=== PATIENT | female | born 1965 | race American Indian/Alaskan Native ===

== ENCOUNTER 2022-03-06 23:13 | Emergency (ER) | payer MEDICARE ==
--- NOTE | 2022-03-07 06:39 | Emergency Department Report ---
ED General Adult HPI - General Chief complaint: Wound/Laceration Stated complaint: WOUNDS ON BOTH LEGS Time Seen by Provider: 03/07/22 06:14 Source: patient, RN notes reviewed Mode of arrival: Ambulatory Limitations: No Limitations - History of Present Illness Initial comments: The patient was evaluated in the emergency department for symptoms described in the history of present illness. He/she was evaluated in the context of the global COVID-19 pandemic, which necessitated consideration that the patient might be at risk for infection with the virus that causes COVID-19. Institutional protocols and algorithms that pertain to the evaluation of patients at risk for COVID-19 are in a state of rapid change based on information released by regulatory bodies including the CDC and federal and state organizations. These policies and algorithms were followed during the patient's care in the emergency department. Please note that these policies, p rocedures and recommendations changed on a rapid basis. Primary care doctor: Farhana This is a pleasant and cooperative 56-year-old female, with chronic lower extremity wounds, who receives wound care through her outpatient primary care doctor, who presents to the department with request for reassurance. She has had wounds to her bilateral lower extremities for months. She currently denies headache, neck pain, chest pain, abdominal pain, fevers, chills. She has chronic shortness of breath. The wounds get dressed once a week. -: month(s) Location: left, right, lower extremity Consistency: constant Improves with: none Worsens with: none Associated Symptoms: denies other symptoms - Related Data Allergies Allergy/AdvReac Type Severity Reaction Status Date / Time aspirin AdvReac Severe Bleeding Verified 03/07/22 00:18 ED Review of Systems ROS: Stated complaint: WOUNDS ON BOTH LEGS Other details as noted in HPI Comment: All other systems reviewed and negative Respiratory: other (Chronic shortness of breath) Cardiovascular: edema (Chronic lower extremity edema) Skin: lesions (Chronic wounds noted to the bilateral lower) ED Past Medical Hx - Social History Smoking Status: Never Smoker Substance Use Type: None ED Physical Exam - General Limitations: No Limitations General appearance: alert, in no apparent distress, obese - Head Head exam: Present: atraumatic, normocephalic - Eye Eye exam: Present: normal appearance, EOMI. Absent: nystagmus - ENT ENT exam: Present: normal exam, normal orophraynx, mucous membranes moist, normal external ear exam - Neck Neck exam: Present: normal inspection, full ROM. Absent: tenderness, meningismus - Respiratory Respiratory exam: Present: normal lung sounds bilaterally. Absent: respiratory distress, wheezes, rales, rhonchi, stridor - Cardiovascular Cardiovascular Exam: Present: regular rate, normal rhythm, normal heart sounds. Absent: bradycardia, tachycardia, irregular rhythm, systolic murmur, diastolic murmur, rubs, gallop - GI/Abdominal GI/Abdominal exam: Present: soft. Absent: distended, tenderness, guarding, rebound, rigid, pulsatile mass - Extremities Exam Extremities exam: Present: full ROM, pedal edema, other (2+ pulses noted in the bilateral upper and lower extremities. There is no palpable cord. negative Homans sign. Muscular compartments are soft. The pelvis is stable.). Absent: normal inspection, tenderness, calf tenderness - Back Exam Back exam: Present: normal inspection. Absent: tenderness, CVA tenderness (R), CVA tenderness (L), paraspinal tenderness, vertebral tenderness - Neurological Exam Neurological exam: Present: alert, oriented X3, other (No facial droop. Tongue midline. Extraocular movements intact bilaterally. Facial sensation intact to light touch in V1, V2, V3 distribution bilaterally. 5 and a 5 strength in 4 extremities. Sensation intact to light touch in 4 extremities.). Absent: motor sensory deficit - Psychiatric Psychiatric exam: Present: normal affect, normal mood - Skin Skin exam: Present: warm, dry. Absent: cyanosis, diaphoretic, erythema, urticaria, vesicles, petechiae, pallor, abrasion, ecchymosis - Other Other exam information: On the right posterior lower extremity, there is an approximately 11 x 10 cm posterior wound. It is on the distal tibia region. There is no redness, pus or streaking. There is good granulation tissue. The muscular compartments are soft. On the left lateral lower extremity, there is a circumferential 4 x 5 cm wound, without redness, pus, streaking. There is good granulation tissue. ED Course Vital Signs 03/07/22 00:15 Temperature 99.1 F Pulse Rate 91 H Respiratory 18 Rate Blood Pressure 168/82 [Right] O2 Sat by Pulse 97 Oximetry - Pulse Oximetry Interpretation Digit-Finger Initial Pulse Oximetry Readin O2 Sat by Pulse Oximetry: 99 Actions Taken: none ED Medical Decision Making - Lab Data Vital Signs 03/07/22 00:15 Temperature 99.1 F Pulse Rate 91 H Respiratory 18 Rate Blood Pressure 168/82 [Right] O2 Sat by Pulse 97 Oximetry - Medical Decision Making Differential diagnosis, including but not limited to: Venous stasis ulcer, chronic wounds. Assessment and plan: 56-year-old female, who is afebrile, with reassuring vital signs, in no acute distress, who presents for reassurance for chronic bilateral lower extremity wounds. The right lower extremity is wrapped, and she is receiving wound care once weekly at her outpatient primary care office. The wounds appear to be chronic, without evidence of acute superinfection. Her muscular compartments are soft, she has good pulses and she is neurovascularly intact. Reassurance is provided. Nursing team to redres lower extremity wounds. She may continue to follow-up with her outpatient primary care doctor, and I will also provide her with information for our wound care clinics Critical care attestation.: If time is entered above; I have spent that time in minutes in the direct care of this critically ill patient, excluding procedure time. ED Disposition Clinical Impression: Leg wound, left, Leg wound, right Disposition: HOME / SELF CARE / HOMELESS Is pt being admited?: No Does the pt Need Aspirin: No Condition: Stable Instructions: Wound Care, Adult Additional Instructions: Please continue current outpatient wound care. Please follow-up with your outpatient wound doctor or primary care doctor as scheduled. May alternatively follow-up with our wound clinic. Recommend that patient continue current outpatient medications, and exercise diet, and lose weight as tolerated. Aggressive weight loss will likely assist with patient's lower extremity wound healing. Please return to the emergency room right away with new pain, worsened pain, migration of pain, projectile vomiting, change in mental status, confusion, inability tolerate liquid feeds, new, worsened or different symptoms not present on the initial emergency room evaluation Referrals: [facility] [Outside] - 3-5 Days Forms: Work/School Release Form(ED)
[2022-03-07] MEDS ORDERED: ACETAMINOPHEN 325 MG TAB PO ONE (08:48)
[2022-03-07 09:56] VITALS: BP 130/76
== END 2022-03-07 10:06 | disposition home or self-care (01) ==
LOC: ED 23:13
DX: S80.921A Unspecified superficial injury of right lower leg, initial encounter (principal); S80.922A Unspecified superficial injury of left lower leg, initial encounter; Z88.6 Allergy status to analgesic agent; X58.XXXA Exposure to other specified factors, initial encounter; Y93.89 Activity, other specified; Y92.89 Other specified places as the place of occurrence of the external cause; Y99.8 Other external cause status
CPT/HCPCS: 99282